=== PATIENT | male | born 1955 | race Caucasian/White ===

== ENCOUNTER → 2016-10-19 | Outpatient (CLI) | payer BC, OTHER ==
[2015-10-30 23:48] VITALS: BP 163/90
[~2016-10-19] MED LIST: GLUC1CAP48 PO; MAGN296S9 PO; MULT-460 PO; NAPR250T2 PO
[2016-10-19 09:39] LABS: BASO % 0 % (0-3); EOS % 2 % (0-3); HEMATOCRIT 48.2 % (39.0-53.0); HEMOGLOBIN 16.3 g/dL (13.0-17.5); LYMPH # 1.6 x10^3/uL (1.0-4.8); LYMPH % 26 % (24-48); MEAN CORPUSCULAR HEMOGLOBIN 31 pg (25-35); MEAN CORPUSCULAR HGB CONC 34 g/dL (31-37); MEAN CORPUSCULAR VOLUME 91 fL (79-100); MONO % 9 % (0-9); NEUT % 64 % (31-73); PLATELET COUNT 169 x10^3/uL (140-400); RED BLOOD COUNT 5.31 x10^6/uL (4.30-5.70); RED CELL DISTRIBUTION WIDTH 14.3 % (11.5-14.5); WHITE BLOOD COUNT 6.3 x10^3/uL (4.0-11.0)
[2016-10-19 09:50] LABS: ALBUMIN 3.8 g/dL (3.4-5.0); CALCIUM 8.7 mg/dL (8.5-10.1); GFR 76.2; POTASSIUM 4.2 mmol/L (3.5-5.1)
[2016-10-19 09:56] LABS: INR 1.1 (0.8-1.1); PROTHROMBIN TIME PATIENT 13.5 SEC (11.7-14.0)
--- NOTE | 2016-10-19 12:59 | EKG ---
[facility] [address] [place] [address] Test Date: 2016-10-19 Test Time: 12:48:13 Pat Name: ALYSSA MERINO Department: Room: Gender: M Electrotype Caster: ERIC : 1955 Requested By: MIKE PETERS Order Number: [id number] Reading MD: Measurements Intervals [place] Rate: 79 P: -8 TN: 150 QRS: 15 QRSD: 86 T: 27 QT: 370 QTc: 425 Interpretive Statements SINUS RHYTHM LEFT ATRIAL ABNORMALITY QRS(T) CONTOUR ABNORMALITY CONSIDER ANTEROLATERAL MYOCARDIAL DAMAGE ABNORMAL ECG RI6.01 Compared to ECG 10/30/2015 22:05:53 Atrial abnormality now present
[2016-10-19 13:02] LABS: BILIRUBIN,URINE NEGATIVE (NEG); GLUCOSE,URINE NEGATIVE (NEG); NITRITE,URINE NEGATIVE (NEG); PH,URINE 5.5; PROTEIN,URINE NEGATIVE (NEG-TRACE); UROBILINOGEN,URINE 0.2 mg/dL (0.2 mg/dL)
[2016-10-19 13:18] LABS: BACTERIA,URINE 0 /HPF (0-FEW); RBC,URINE 0 /HPF (0-2); WBC,URINE 0 /HPF (0-4)
--- NOTE | 2016-10-19 14:46 | RAD ---
Indication preop. Anticipated knee replacement. PA and lateral views were obtained. No prior imaging of the chest is available. The heart and pulmonary vessels appear normal. The lungs are clear. There is no pleural fluid or pneumothorax. The bony structures appear grossly intact. IMPRESSION: No acute or focal process seen in the chest
== END | disposition home or self-care (01) ==
LOC: SURGPAT 13:23
PROVIDERS: ATTEND Orthopaedic Surgery
DX: Z01.818 Encounter for other preprocedural examination (principal); I10 Essential (primary) hypertension
CPT/HCPCS: 36415; 71020; 80048; 81001; 82040; 85027; 85610; 85651; 85730; 87086; 87641; 93005

== ENCOUNTER 2016-11-10 07:10 | Inpatient (IN) | payer BC, OTHER ==
--- NOTE | 2016-11-09 11:18 | PDOC1 ---
History and Physical Date of Admission Date of Admission DATE: 11/10/16 Identification/Chief Complaint Chief Complaint left knee osteoarthritis pain Problems: Source Source: Chart review History of Present Illness History of Present Illness His left knee is worse than his right. He has a history of left knee meniscectomy in 1974. He also states in early his last MRI showed he did not have an ACL. He saw an orthopedic doctor at [facility] in 2000 and stated at that time he needed a left total knee replacement, but he was not ready for that at the time. He has a history of right knee arthroscopy with loose body removal in 1983. He states his pain in his right knee is located medially and the left knee is painful all over. His pain is dull in nature and rates his pain 5/10. His pain is worse with stairs and prolonged weightbearing. His pain is the worst when getting up in the morning. Mowing the lawn is very difficult; he often has to take breaks. He has a daily exercise program he does along with a stationary bike. He has a history of power lifting for 20+ years, but no longer does that. Past Medical History Cardiovascular: HTN Past Surgical History Past Surgical History knee arthroscopy - 1974 & 1983, broken leg - 1969, varicocele - 1988 Family History Family History: Cancer Social History Smoke: No ALCOHOL: none Drugs: None Current Medications Current Medications Active Scripts Active Magnesium Citrate 296 Ml Solution 296 Ml PO ONCE Reported Naproxen 250 Mg Tablet 250 Mg PO Glucosamine & Chondroitin Cap (Gluc 2KCL/Chondr/Laure Hy/Hy Ac) 1 Each Capsule 1 Each PO DAILY Multiple Vitamin (Multivitamin With Minerals) 1 Each Tablet 1 Each PO DAILY Allergies Allergies: Coded Allergies: No Known Drug Allergies (Unverified , 10/28/13) Physical Exam General: Alert, Oriented X3, Cooperative, No acute distress HEENT: Atraumatic, EOMI Lungs: Normal air movement Heart: RRR Abdomen: Soft Extremities: No clubbing, No cyanosis, No edema, Normal pulses, Other (Upon inspection of the left knee, there are no masses or detectable effusion. There is a well-healed surgical scar consistent with open medial meniscectomy. Diffuse enlargement of the knee, consistent with osteoarthritis. Varus alignment. The left knee shows active range of motion from 5-120 degrees. There is crepitus felt with motion and no pain with motion. There is mild tenderness to palpation along the medial joint line. The knee is stable to varus and valgus stress, without subluxation or laxity. Quadriceps and hamstring show normal strength of 5/5, with normal muscle tone. No edema or varicosities. Upon inspection of the right knee, there are no masses or detectable effusion. Diffuse enlargement of the knee, consistent with osteoarthritis. Varus alignment. The right knee shows active range of motion from 0-125 degrees. There is crepitus felt with motion and no pain with motion. There is no tenderness to palpation about the knee. The knee is stable to varus and valgus stress, without subluxation or laxity. Quadriceps and hamstring show normal strength of 5/5, with normal muscle tone. No edema or varicosities. ) Skin: No rashes, No breakdown, No significant lesion Neuro: Normal speech, Sensation intact Psych/Mental Status: Mental status NL, Mood NL Images Images :IMAGING REPORT Images: 45 PA weightbearing view, lateral, and sunrise view of both knees. Clinical information: Bilateral knee pain. Comparison: None. Findings Bones: There is no fracture, dislocation, or acute bony abnormality detected. Joints: Bilateral knees show tricompartmental joint space narrowing with itty-wj-yaiw changes in the medial compartment. There are moderate multiple osteophytes, sclerosis, and deformity of bone contour. These are Kellgren-Walker Grade 4 changes. Soft tissue: Normal. Impression: Bilateral knee osteoarthritis, severe. VTE Prophylaxis Ordered VTE Prophylaxis Devices: Yes VTE Pharmacological Prophylaxi: Yes Assessment/Plan Assessment/Plan Left knee osteoarthritis pain. Findings were reviewed and treatment options were discussed with the patient. He has tried nonoperative treatment for the bilateral knee osteoarthritis and is ready for total knee surgery. The left knee is more symptomatic than the right, so we will start there. We discussed total knee arthroplasty, including the joint class, pre-testing, surgical procedure, and rehabilitation process. We discussed the potential risks of arthroplasty, including risks of bleeding, infection, blood clots, neurovascular injury, need for revision surgery, or other potential surgical or anesthetic complications. Dr. Rivera discussed this with the patient as well and showed him the surgical procedure using knee models and implant models. We will use [employer], because of his age. All of his questions were answered and he desires to proceed with left total knee arthroplasty. We will request medical clearance from his primary care provider, Dr. Patel. I recommended a corticosteroid injection today for the right knee and right shoulder and he agrees. We will scheduled left total knee arthroplasty at a mutually convenient date. VERÓNICA GUERRERO Nov 09, 2016 11:18
[~2016-11-10] VITALS: Ht 174.6 cm; Wt 129.3 kg
[2016-11-10] VITALS (8 sets, daily range): BP systolic 123–171; BP diastolic 71–88
[~2016-11-10 07:10] MED LIST changes: +BACITRACIN 50,000 UNIT in IV NORMAL SALINE 1000ML BAG 1,000 ML IRR ONE; +CELECOXIB 200 MG CAPSULE. PO PRN; +DEXAMETHASONE SOD PHOS 20 MG/5 ML VIAL. ONE; +HYDROcodone/APAP 7.5/325MG 1 TAB TABLET PO PRN; +HYDROmorphone 2 MG/ML VIAL IV PRN; +IV RINGERS,LACTATED 1000ML 1,000 ML IV SCH; +LIDOCAINE 1% 1 ML SYRINGE. ID PRN; +LIDOCAINE 2% PF Vial for OR 5 ML VIAL. ONE; +MIDAZOLAM HCL/PF 2 MG/2 ML VIAL. ONE; +MORPHINE SULFATE 5 MG, KETOROLAC TROMETHAMINE 30 MG, ROPIVacaine 0.5% PF 60 ML, EPINEPH... INT ART ONE; +ONDANSETRON PF 4 MG/2 ML VIAL. IV PRN; +ONDANSETRON PF 4 MG/2 ML VIAL. ONE; +PROCHLORPERAZINE 10 MG/2 ML VIAL. IV PRN; +PROPOFOL 20 ML IV ONE; +SEVOFLURANE > 120 MINUTES. IH ONE; +TOBRAMYCIN POWDER 1.2 GM VIAL. ONE; +TRANEXAMIC ACID 1,000 MG in IV NS 50ML -- 1ST BAG INJ ONE; +VANCOMYCIN 1 GM VIAL. ONE; +[UNRECOGNIZED DRUG - REMARK] INT ART ONE; +fentaNYL PF VIAL 100 MCG/2 ML VIAL IV PRN; +fentaNYL PF VIAL 100 MCG/2 ML VIAL ONE
[2016-11-10] MEDS ORDERED: SUCCINYLCHOLINE 200 MG/10 ML VIAL. ONE (07:34)
[2016-11-10] MEDS ORDERED: fentaNYL PF VIAL 100 MCG/2 ML VIAL ONE (07:48)
[2016-11-10] MEDS ORDERED: VANCOMYCIN 1 GM VIAL. CEMENT ONE (08:00)
[2016-11-10] MEDS ORDERED: TRANEXAMIC ACID 1,000 MG in IV NS 50ML -- 2ND BAG INJ ONE (08:00)
[2016-11-10] MEDS ORDERED: VANCOMYCIN 1 GM VIAL. ONE (08:12)
--- NOTE | 2016-11-10 09:43 | PDOC4 ---
Operative Note Operative Note Date of Procedure: November 10, 2016 Pre-Op Diagnosis: Osteoarthritis left knee Post-Op Diagnosis: Osteoarthritis left knee Procedure: left total knee arthroplasty Surgeon: Mike Rivera MD Tire Fabricator: Rosa Saenz PA-C, Yevgeniy Wheatley PA-C Anesthesia: General EBL: 100 mL Specimens Obtained: left knee bone and soft tissue Complications: none Implant Company: [employer] Drains: Hemovac plus pain catheter Tourniquet time: 60 Minutes Tourniquet Pressure: 350 mm Hg Indications for Procedure: Arthritis pain unrelieved by nonoperative management. Findings: Severe osteoarthritis with bone on bone contact in all three compartments with varus deformity and medial bone erosion Implants used: Size 7 left bicruciate stabilized Journey II BCS Oxinium femoral component, size 6 left Journey nonporous tibial baseplate, size 5-6 constrained 18 mm left Journey II BCS XLPE articular insert, 41 mm oval Lala II resurfacing patellar component Procedure in Detail: The patient was identified in the preoperative holding area, and the correct left lower extremity was marked by me. The patient was taken to the operating room where the patient was anesthetized by the Department of Anesthesia. Preoperative antibiotics were given intravenously. Tranexamic acid 1 g was given intravenously for intraoperative hemostasis. A "time-out" procedure was performed. The patient was positioned supine on the operative table with a tourniquet on the upper left thigh. The left lower limb was thoroughly prepped and draped in sterile fashion. An impervious stockinet and adhesive drape were used such that the skin was entirely covered. An Wade leg castano was used. The operating team wore personal exhaust-ventilated hoods. The tourniquet was inflated to 350 Hg. A midline skin incision was made with a scalpel using the patella and tibial tubercle as landmarks. Electrocautery was used for hemostasis. My speech therapy assistant used rake retractors. A medial parapatellar arthrotomy incision was used with extension into the distal quadriceps tendon. I avoided a narrow skin bridge from his old incision from the 1970s. The patella was retracted laterally and Hohmann retractors were now used by my speech therapy assistant. Excess synovium, the menisci, and the cruciate ligaments were resected sharply. The patella was assessed and excess synovium and osteophytes around the patellar articulation were removed. The patella was measured with a caliper, cut freehand with a saw using caliper measurements, sized, and then drilled for an oval three-pegged patella component. Periarticular injection was used in the suprapatellar pouch and distal quadriceps muscle. Whitesides's line was assessed on the femur. An intra-medullary 5 degree cutting guide was pinned to the femur, and a distal femoral cut was made with an oscillating saw. An additional 2 mm resection was used due to the deep femoral sulcus, and deficient condyle.My speech therapy assistant held Hohmann retractors and an [employer] retractor to protect the medial and lateral collateral ligaments, the patellar tendon, the skin and the other soft tissues. An anterior referencing guide was applied with external rotation of 3 to match Kranthi s line. A 5-in-1 Journey II cutting guide was then applied and pinned to the femur. The posterior, anterior, and all chamfer cuts were made with the oscillating saw. An extramedullary guide was pinned to the tibia and rotational alignment and the planned resection thickness assessed. An external alignment daniela was used to verify the planned cut in the varus-valgus plane and regarding posterior slope referencing the tibial tubercle, the tibial shaft, the ankle joint, and the second metatarsal. The upper tibia was cut made with an oscillating saw. My speech therapy assistant held Hohmann retractors and a posterior cruciate ligament retractor to protect the medial and lateral collateral ligaments, the patellar tendon, the skin, the peroneal nerve and the other soft tissues. The upper tibia was sized with a trial baseplate. The posterior compartment was cleared of osteophytes and loose bodies, and posterior capsule released. Livia-articular injection was used in the posterior compartment. The box cut for a posterior stabilized component was made. A preliminary reduction was performed with a trial femur, trial tibial baseplate and trial polyethylene. Soft-tissue balancing was now performed, and extension and rotation of the alignments was checked using a guide daniela in the tibial trial and a guide pin in the femur. No additional releases were required. The MCL was deficient despite the varus deformity. The medial osteophyte resection needed was extensive, and the MCL appeared chronically insufficient due to his prior surgery. The stability was assessed using different thicknesses of tibial articular surface to find satisfactory stability and good range of motion. The rotation of the tibial component was marked on the upper tibia. Final trial reduction was now performed verifying patella tracking and tibiofemoral stability and alignment. The tibia preparation was completed with a drill, saw, and fin punch at the previously noted rotation. The final implants were verified and opened. Outer gloves were changed by the operating team. The bone cuts were washed thoroughly with the Joe InterPulse device and dried. Two packages of Palacos bone cement were mixed in powdered form with 2 gm of Vancomycin and 1.2 gm tobramycin, then vacuum-mixed with the monomer, and placed into a cement gun. The cut surfaces of the bone were thoroughly dried with Wynn-tip suction and with laparotomy sponges for cement interdigitation. The final components were cemented into place. The knee was kept at full extension while the cement hardened, and excess cement was removed. Tranexamic acid 1 g was redosed intravenously for additional intraoperative hemostasis. A final periarticular injection was used for pain relief. The tourniquet was released, and electrocautery was used for hemostasis. A final check of tjeor-yw-nbryad and stability was made, and the polyethylene implant final size was chosen. The polyethylene implant was secured to the tibial baseplate, and the knee was reduced a final time. Thorough irrigation was used. Hemovac and pain catheter were used.The arthrotomy was closed with interrupted [id number] #1 PDS suture. The arthrotomy incision was then run with #1 STRATAFIX Symmetric PDS Plus Knotless suture. The subcutaneous tissues were closed with #2-0 Vicryl by my speech therapy assistant. The skin was approximated with STRATAFIX Spiral MONOCRYL Plus Knotless suture by my speech therapy assistant. The skin incision was then covered and reinforced with Dermabond Prineo mesh skin closure dressing. A bulky sterile gauze dressing was applied. Needle and sponge counts were correct. MIKE RIVERA MD Nov 10, 2016 09:43
[2016-11-10] MEDS ORDERED: fentaNYL PF VIAL 100 MCG/2 ML VIAL IV PRN ×2 (10:00)
[2016-11-10] MEDS ORDERED: METOCLOPRAMIDE HCL 10 MG/2 ML VIAL. IV PRN (10:00)
[2016-11-10] MEDS ORDERED: traMADol 50 MG TABLET PO PRN ×2 (10:00)
[2016-11-10] MEDS ORDERED: MORPHINE SULFATE 2 MG/ML DISP.SYRIN. IV PRN (10:00)
[2016-11-10] MEDS ORDERED: diphenhydrAMINE 50 MG/ML VIAL IV PRN (10:00)
[2016-11-10] MEDS ORDERED: MORPHINE SULFATE 10 MG/ML VIAL. IV PRN (10:00)
[2016-11-10] MEDS ORDERED: oxyCODONE/APAP 5/325 1 TAB TABLET PO PRN (10:00)
[2016-11-10] MEDS ORDERED: PROCHLORPERAZINE 5 MG TABLET. PO PRN (10:00)
[2016-11-10] MEDS ORDERED: MORPHINE SULFATE 4 MG/ML DISP.SYRIN. IV PRN ×2 (10:00)
[2016-11-10] MEDS ORDERED: ZOLPIDEM 5 MG TABLET. PO PRN (10:00)
[2016-11-10] MEDS ORDERED: DEXTROSE 50% 25 GM / 50ML DISP.SYRIN. IV PRN (10:00)
[2016-11-10] MEDS ORDERED: CALCIUM CARBONATE 500 MG TAB.CHEW PO PRN (10:00)
[2016-11-10] MEDS ORDERED: ACETAMINOPHEN 325 MG TABLET. PO PRN (10:00)
[2016-11-10] MEDS ORDERED: 0.9 % SODIUM CHLORIDE 10 ML DISP.SYRIN. IV PRN (10:00)
[2016-11-10] MEDS ORDERED: HYDROcodone/APAP 10/325 1 TAB TABLET PO PRN (10:00)
[2016-11-10] MEDS ORDERED: PROCHLORPERAZINE 10 MG/2 ML VIAL. IV PRN (10:00)
[2016-11-10] MEDS ORDERED: MORPHINE SULFATE 2 MG/ML DISP.SYRIN. ONE (10:28)
--- NOTE | 2016-11-10 10:29 | RAD ---
Exam performed: 2 views of the left knee. Indication: Postop evaluation Date of Service: 11/10/16. None available Two views left knee findings: There are postsurgical changes of total left knee arthroplasty with prosthesis in satisfactory position. There is expected subcutaneous edema and emphysema. There is a drainage catheter projecting anteroinferior to the patella. Impression: 1. Postsurgical changes of total left knee arthroplasty.
[2016-11-10] MEDS: MORPHINE SULFATE 2 MG/ML DISP.SYRIN. IV PRN ×2 (10:32→10:43)
[2016-11-10] MEDS ORDERED: MAGNESIUM CITRATE 296 ML SOLUTION. PO ONE (12:00)
[2016-11-10] MEDS: IV DEXTROSE 5 %-0.45 % NACL 1,000 ML IV SCH ×2 (14:15→22:00)
[2016-11-10] MEDS: FERROUS SULFATE 325 MG TABLET. PO SCH (18:44)
[2016-11-10] MEDS: HYDROcodone/APAP 7.5/325MG 1 TAB TABLET PO PRN ×2 (18:46→21:41)
[2016-11-10] MEDS: CELECOXIB 200 MG CAPSULE. PO SCH (21:37)
[2016-11-10] MEDS: ASPIRIN ENTERIC COATED 325 MG TABLET.DR. PO SCH (21:37)
[2016-11-11 03:00] VITALS: BP 117/74
--- NOTE | 2016-11-11 03:56 | ACF ---
Admission Forms Criteria PAIN MANAGEMENT GR Clinical Indications for Admission to Inpatient Care (Place 'X' for any and all applicable criteria): Hospital admission is needed for appropriate care of the patient because of 1 or more of the following are present (1)(2)(3)(4)(5): [ ]I. Severe pain requiring acute inpatient management as indicated by 1 or more of the following (2)(5)(10): [ ]a) Continuous or frequent (eg, every 2 to 4 hours) parenteral analgesics required [A] [ ]b) Necessity (ie, alternative approaches not effective) for analgesic regimen that can only be performed or initiated in inpatient setting [X]II. Pain causing debilitation to the point of inability to function or be supported at any other level of care [ ]III. Severe side effects from pain medications as indicated by ANY ONE of the following (12)(13)(14)(15): [ ]a) Uncontrollable seizures [ ]b) Cardiac arrhythmias of immediate concern [ ]c) Dehydration that is severe or persistent [ ]d) Vomiting that is severe or persistent [ ]e) Altered mental status that is severe or persistent [ ]f) Obstipation with inadequate GI function to maintain nutrition The original [employer] content created by [employer] has been revised. The portions of the content which have been revised are identified through the use of italic text or in bold, and [facility] has neither reviewed nor approved the modified material. All other unmodified content is copyright [employer]. Please see references footnoted in the original [employer] edition 2016 Admission Criteria Met?: Yes SOLO SAHU Nov 11, 2016 03:56
[2016-11-11 05:47] LABS: HEMATOCRIT 37.8 % (39.0-53.0); HEMOGLOBIN 12.8 g/dL (13.0-17.5); RED BLOOD COUNT 4.22 x10^6/uL (4.30-5.70); RED CELL DISTRIBUTION WIDTH 13.9 % (11.5-14.5); WHITE BLOOD COUNT 16.4 x10^3/uL (4.0-11.0)
[2016-11-11] MEDS ORDERED: MAGNESIUM HYDROXIDE 2,400 MG/30 ML ORAL.SUSP. PO PRN (06:00)
[2016-11-11 06:16] VITALS: BP 121/76
[2016-11-11] MEDS: FERROUS SULFATE 325 MG TABLET. PO SCH ×2 (08:05→17:29)
[2016-11-11] MEDS: HYDROcodone/APAP 7.5/325MG 1 TAB TABLET PO PRN (08:05)
[2016-11-11] MEDS: SENNOSIDES/DOCUSATE 8.6/50MG TABLET. PO SCH (08:06)
[2016-11-11] MEDS: MULTIVITAMIN with MINERAL TABLET. PO SCH (08:06)
[2016-11-11] MEDS: ASPIRIN ENTERIC COATED 325 MG TABLET.DR. PO SCH ×2 (08:06→21:52)
[2016-11-11] MEDS: CELECOXIB 200 MG CAPSULE. PO SCH ×2 (08:06→21:52)
--- NOTE | 2016-11-11 09:42 | PDOC ---
PROGRESS NOTES Subjective Subjective No complaints. Pain controlled. States he is doing better than expected. Objective Vital Signs Vital Signs Date Time Temp Pulse Resp B/P (MAP) Pulse Ox O2 Delivery O2 Flow Rate FiO2 11/11/16 08:05 Room Air 11/11/16 06:16 98.3 81 20 121/76 (91) 94 98.3 11/10/16 11:17 2.0 Physical Exam Dressing dry. Pain catheter and Hemovac in place. Good dorsiflexion and plantarflexion of the foot with no evidence of neurovascular injury or DVT. Calves are soft and non-tender. Negative Homans. Peripheral pulses and light touch sensation intact. Labs Laboratory Tests Test 11/10/16 16:50 11/11/16 05:15 Glucose (Fingerstick) 148 mg/dL (70-99) White Blood Count 16.4 x10^3/uL (4.0-11.0) Red Blood Count 4.22 x10^6/uL (4.30-5.70) Hemoglobin 12.8 g/dL (13.0-17.5) Hematocrit 37.8 % (39.0-53.0) Mean Corpuscular Volume 90 fL (79-100) Mean Corpuscular Hemoglobin 30 pg (25-35) Mean Corpuscular Hemoglobin Concent 34 g/dL (31-37) Red Cell Distribution Width 13.9 % (11.5-14.5) Platelet Count 153 x10^3/uL (140-400) Laboratory Tests Test 11/10/16 16:50 11/11/16 05:15 Glucose (Fingerstick) 148 mg/dL (70-99) White Blood Count 16.4 x10^3/uL (4.0-11.0) Red Blood Count 4.22 x10^6/uL (4.30-5.70) Hemoglobin 12.8 g/dL (13.0-17.5) Hematocrit 37.8 % (39.0-53.0) Mean Corpuscular Volume 90 fL (79-100) Mean Corpuscular Hemoglobin 30 pg (25-35) Mean Corpuscular Hemoglobin Concent 34 g/dL (31-37) Red Cell Distribution Width 13.9 % (11.5-14.5) Platelet Count 153 x10^3/uL (140-400) Imaging Postoperative x-rays reviewed by me, showing satisfactory total knee replacement , with no apparent complications. Assessment Assessment POD #1 left TKA Problems: Plan Plan of Care Continue POC including DVT prophylaxis and physical therapy. We discussed possible discharge home tomorrow afternoon. VERÓNICA GUERRERO Nov 11, 2016 09:42
[2016-11-11] MEDS: oxyCODONE/APAP 7.5/325 1 TAB TABLET PO PRN ×2 (12:31→21:52)
[2016-11-11] MEDS: CYCLOBENZAPRINE 10 MG TABLET. PO PRN ×2 (12:33→21:52)
[2016-11-11] MEDS ORDERED: BISACODYL 10 MG SUPP.RECT. PR PRN (16:00)
[2016-11-11 18:30] VITALS: BP 125/91
[2016-11-12 06:00] VITALS: BP 124/92
[2016-11-12 06:06] LABS: HEMATOCRIT 36.6 % (39.0-53.0); HEMOGLOBIN 12.2 g/dL (13.0-17.5)
[2016-11-12] MEDS: FERROUS SULFATE 325 MG TABLET. PO SCH ×2 (08:25→17:13)
[2016-11-12] MEDS: MULTIVITAMIN with MINERAL TABLET. PO SCH (08:25)
[2016-11-12] MEDS: CELECOXIB 200 MG CAPSULE. PO SCH ×2 (08:25→21:33)
[2016-11-12] MEDS: SENNOSIDES/DOCUSATE 8.6/50MG TABLET. PO SCH (08:25)
[2016-11-12] MEDS: ASPIRIN ENTERIC COATED 325 MG TABLET.DR. PO SCH ×2 (08:25→21:00)
[2016-11-12] MEDS: HYDROcodone/APAP 7.5/325MG 1 TAB TABLET PO PRN ×2 (08:26→12:06)
--- NOTE | 2016-11-12 13:15 | PDOC ---
PROGRESS NOTES Subjective Subjective Doing well. States he is surprised he hasn't had much pain. Objective Vital Signs Vital Signs Date Time Temp Pulse Resp B/P (MAP) Pulse Ox O2 Delivery O2 Flow Rate FiO2 11/12/16 08:00 Room Air 11/12/16 06:00 98.0 73 20 124/92 (103) 97 98.0 11/10/16 11:17 2.0 Physical Exam Expected swelling. Pain catheter and Hemovac have been removed. Prineo intact and dry. Spotty drainage from drain site. There is an intact blister laterally. Calf soft and nontender with a negative Homans sign. Good dorsiflexion and plantarflexion with no evidence of neurovascular injury. Peripheral pulses and light touch sensation intact. Labs Laboratory Tests Test 11/10/16 16:50 11/11/16 05:15 11/12/16 05:20 Glucose (Fingerstick) 148 mg/dL (70-99) White Blood Count 16.4 x10^3/uL (4.0-11.0) Red Blood Count 4.22 x10^6/uL (4.30-5.70) Hemoglobin 12.8 g/dL (13.0-17.5) 12.2 g/dL (13.0-17.5) Hematocrit 37.8 % (39.0-53.0) 36.6 % (39.0-53.0) Mean Corpuscular Volume 90 fL (79-100) Mean Corpuscular Hemoglobin 30 pg (25-35) Mean Corpuscular Hemoglobin Concent 34 g/dL (31-37) 33 g/dL (31-37) Red Cell Distribution Width 13.9 % (11.5-14.5) Platelet Count 153 x10^3/uL (140-400) Laboratory Tests Test 11/12/16 05:20 Hemoglobin 12.2 g/dL (13.0-17.5) Hematocrit 36.6 % (39.0-53.0) Mean Corpuscular Hemoglobin Concent 33 g/dL (31-37) Assessment Assessment POD #2 TKA Problems: Plan Plan of Care Continue DVT prophylaxis and physical therapy. Planned discharge tomorrow. Office f/u in 10-14 days. VERÓNICA GUERRERO Nov 12, 2016 13:15
--- NOTE | 2016-11-12 17:27 | PATHOLOGY ---
PATHOLOGY REPORT * * * * * * * * FINAL DIAGNOSIS: Segments of bone and soft tissue, left total knee arthroplasty: - Advanced degenerative arthritis. (JPM:barbie; 11/12/2016) REPORT ELECTRONICALLY SIGNED BY: Darrius Ricardo M.D. DATE/TIME: 11/12/2016 17:27 * * * * * * * * GROSS PATHOLOGY: Received in formalin labeled "Eddi Merino, left knee tissue," are multiple segments of bone, including tibial plateau, measuring 10.0 x 10.0 x 6.3 cm in aggregate dimensions admixed with soft tissue; meniscus is present. The specimen shows focal eburnation of the articular surfaces. Painting Machine Operator sections of bone and soft tissue are submitted in cassette A1, following decalcification. (DAC; 11/11/2016) INITIAL CPT CODE(S): A; 22488, 19159 Professional services performed [place] [facility] [place] [address] Technical services performed by [facility] at [address] [place] [address], [facility] [address] [address]. SPECIMEN(S) RECEIVED: A.Left knee tissue CLINICAL HISTORY: Left knee OA PATIENT: EDDI MERINO /AGE: 9 1955 (Age: 60) PATIENT #: [id number] ALT CASE #: SPECIMEN COLLECTION DATE: 11/10/2016 SPECIMEN RECEIVED DATE: 11/10/2016 [facility] - [address] [place] [address] - PHONE: [phone] * * * END OF REPORT * * *
[2016-11-12 18:38] VITALS: BP 134/89
[2016-11-12] MEDS: oxyCODONE/APAP 7.5/325 1 TAB TABLET PO PRN (21:34)
[2016-11-13 06:00] VITALS: BP 135/83
[2016-11-13 06:15] LABS: HEMATOCRIT 37.4 % (39.0-53.0); HEMOGLOBIN 12.3 g/dL (13.0-17.5)
[2016-11-13] MEDS: MULTIVITAMIN with MINERAL TABLET. PO SCH (08:22)
[2016-11-13] MEDS: CELECOXIB 200 MG CAPSULE. PO SCH (08:22)
[2016-11-13] MEDS: FERROUS SULFATE 325 MG TABLET. PO SCH (08:22)
[2016-11-13] MEDS: ASPIRIN ENTERIC COATED 325 MG TABLET.DR. PO SCH (08:23)
[2016-11-13] MEDS: oxyCODONE/APAP 7.5/325 1 TAB TABLET PO PRN (08:23)
[2016-11-13] MEDS: SENNOSIDES/DOCUSATE 8.6/50MG TABLET. PO SCH (08:23)
--- NOTE | 2016-11-13 12:29 | PDOC ---
PROGRESS NOTES Subjective Subjective Doing well. Planning for discharge later today after PT. Objective Vital Signs Vital Signs Date Time Temp Pulse Resp B/P (MAP) Pulse Ox O2 Delivery O2 Flow Rate FiO2 11/13/16 06:00 97.8 79 20 135/83 (100) 96 Room Air 97.8 11/10/16 11:17 2.0 Physical Exam Expected swelling. Prineo dressing intact and dry. The large lateral blister has bursted, no evidence of infection. There are two tiny blisters that remain intact just superior to the lateral blister Calf soft and nontender. Negative Homans. Good AROM ankle. Peripheral pulses and light touch sensation intact. Labs Laboratory Tests Test 11/12/16 05:20 11/13/16 04:30 Hemoglobin 12.2 g/dL (13.0-17.5) 12.3 g/dL (13.0-17.5) Hematocrit 36.6 % (39.0-53.0) 37.4 % (39.0-53.0) Mean Corpuscular Hemoglobin Concent 33 g/dL (31-37) 33 g/dL (31-37) Laboratory Tests Test 11/13/16 04:30 Hemoglobin 12.3 g/dL (13.0-17.5) Hematocrit 37.4 % (39.0-53.0) Mean Corpuscular Hemoglobin Concent 33 g/dL (31-37) Assessment Assessment POD 3 TKA Problems: Plan Plan of Care Discharge later today, to home. Continue DVT prophylaxis and physical therapy. F/U 10-14 days. VERÓNICA GUERRERO Nov 13, 2016 12:29
--- NOTE | 2016-11-13 12:31 | PDOC3 ---
Discharge Summary Visit Information Date of Admission: Nov 10, 2016 Date of Discharge: Nov 13, 2016 Admitting Diagnosis: left knee osteoarthritis pain Brief Hospital Course Allergies Allergies Coded Allergies Type Severity Reaction Last Updated Verified No Known Drug Allergies 10/28/13 No Vital Signs Vital Signs Date Time Temp Pulse Resp B/P (MAP) Pulse Ox O2 Delivery O2 Flow Rate FiO2 11/13/16 06:00 97.8 79 20 135/83 (100) 96 Room Air 97.8 Lab Results Laboratory Tests Test 11/12/16 05:20 11/13/16 04:30 Hemoglobin 12.2 g/dL (13.0-17.5) 12.3 g/dL (13.0-17.5) Hematocrit 36.6 % (39.0-53.0) 37.4 % (39.0-53.0) Mean Corpuscular Hemoglobin Concent 33 g/dL (31-37) 33 g/dL (31-37) Laboratory Tests Test 11/13/16 04:30 Hemoglobin 12.3 g/dL (13.0-17.5) Hematocrit 37.4 % (39.0-53.0) Mean Corpuscular Hemoglobin Concent 33 g/dL (31-37) Brief Hospital Course 60 year old male who presented with knee osteoarthritis, for elective total knee arthroplasty. The patient underwent total knee arthroplasty under general anesthesia the day of admission. Perioperative antibiotics and DVT prophylaxis were used. Postoperatively physical therapy and case management were consulted. The patient progressed and is stable for discharge. Discharge Information Condition at Discharge: Stable Follow Up: Weeks (2) Disposition/Orders: D/C to Home Scheduled Gluc 2KCL/Chondr/Laure Hy/Hy Ac (Glucosamine & Chondroitin Cap), 1 EACH PO DAILY, (Reported) Magnesium Citrate (Magnesium Citrate), 296 ML PO ONCE Multivitamin With Minerals (Multiple Vitamin), 1 EACH PO DAILY, (Reported) Miscellaneous Medications Naproxen (Naproxen), 250 MG PO, (Reported) Patient Instructions Patient Instructions Patient Instructions Continue to WBAT with walker. Keep dressing dry and intact. F/U with [facility] in 10-14 days. Call for appointment. Physical therapy for TKA Continue DVT prophylaxis with ASA 325mg twice daily. VERÓNICA GUERRERO Nov 13, 2016 12:31
[2016-11-13 14:30] VITALS: BP 126/85
== END 2016-11-13 14:56 | disposition home or self-care (01) | DRG 470 ==
LOC: OPSVCIP 08:32 → 4 SOUTHEST 11:03
PROVIDERS: ADMIT Orthopaedic Surgery; ATTEND Orthopaedic Surgery
PROC: 0SRD0J9 Replacement of Left Knee Joint with Synthetic Substitute, Cemented, Open Approach (ICD-10-PCS; principal; 2016-11-10 07:10)
DX: M17.11 Unilateral primary osteoarthritis, right knee (principal); I10 Essential (primary) hypertension; Z80.9 Family history of malignant neoplasm, unspecified
CPT/HCPCS: 36415; 73560; 82962; 85014; 85018; 85027; 86850; 86900; 86901; 88305; 88311; J0171; J0330; J0690; J1100; J1885; J2250; J2270; J2405; J2704; J2795; J3010; J3260; J3370; J3490; J7030; J7120; 97116; 97150; 97530; 97535; C1769; J2001

== ENCOUNTER → 2020-07-09 | Outpatient (CLI) | payer BC, OTHER ==
[~2020-07-09] MED LIST changes: -BACITRACIN 50,000 UNIT in IV NORMAL SALINE 1000ML BAG 1,000 ML IRR ONE; -CELECOXIB 200 MG CAPSULE. PO PRN; -DEXAMETHASONE SOD PHOS 20 MG/5 ML VIAL. ONE; +FERR325T14 PO; -HYDROcodone/APAP 7.5/325MG 1 TAB TABLET PO PRN; -HYDROmorphone 2 MG/ML VIAL IV PRN; -IV RINGERS,LACTATED 1000ML 1,000 ML IV SCH; -LIDOCAINE 1% 1 ML SYRINGE. ID PRN; -LIDOCAINE 2% PF Vial for OR 5 ML VIAL. ONE; +MAGN296S68 PO; -MAGN296S9 PO; -MIDAZOLAM HCL/PF 2 MG/2 ML VIAL. ONE; -MORPHINE SULFATE 5 MG, KETOROLAC TROMETHAMINE 30 MG, ROPIVacaine 0.5% PF 60 ML, EPINEPH... INT ART ONE; +NAPR-514 PO; +NAPR-699 PO; -NAPR250T2 PO; -ONDANSETRON PF 4 MG/2 ML VIAL. IV PRN; -ONDANSETRON PF 4 MG/2 ML VIAL. ONE; -PROCHLORPERAZINE 10 MG/2 ML VIAL. IV PRN; -PROPOFOL 20 ML IV ONE; +PSYL0.5215 PO; -SEVOFLURANE > 120 MINUTES. IH ONE; -TOBRAMYCIN POWDER 1.2 GM VIAL. ONE; -TRANEXAMIC ACID 1,000 MG in IV NS 50ML -- 1ST BAG INJ ONE; -VANCOMYCIN 1 GM VIAL. ONE; -[UNRECOGNIZED DRUG - REMARK] INT ART ONE; -fentaNYL PF VIAL 100 MCG/2 ML VIAL IV PRN; -fentaNYL PF VIAL 100 MCG/2 ML VIAL ONE
[2020-07-09 14:21] LABS: BASO # 0.1 x10^3/uL (0.0-0.2); BASO % 1 % (0-3); EOS # 0.2 x10^3/uL (0.0-0.7); EOS % 3 % (0-3); HEMATOCRIT 46.1 % (39.0-53.0); HEMOGLOBIN 15.5 g/dL (13.0-17.5); LYMPH % 27 % (24-48); MEAN CORPUSCULAR HEMOGLOBIN 31 pg (25-35); MEAN CORPUSCULAR HGB CONC 34 g/dL (31-37); MEAN CORPUSCULAR VOLUME 91 fL (79-100); MONO # 0.5 x10^3/uL (0.0-1.1); MONO % 7 % (0-9); NEUT # 4.7 x10^3/uL (1.8-7.7); NEUT % 63 % (31-73); PLATELET COUNT 167 x10^3/uL (140-400); RED BLOOD COUNT 5.04 x10^6/uL (4.30-5.70); RED CELL DISTRIBUTION WIDTH 13.6 % (11.5-14.5); WHITE BLOOD COUNT 7.4 x10^3/uL (4.0-11.0)
--- NOTE | 2020-07-09 14:28 | EKG ---
[facility] [address] [place] [address] Test Date: 2020-07-09 Test Time: 14:23:05 Pat Name: ALYSSA MERINO Department: Room: Gender: M Reiki Practitioner: BOBBY : 1955 Requested By: MIKE PETERS Order Number: [id number] Reading MD: Erwin Goddard Measurements Intervals [place] Rate: 81 P: 41 TN: 182 QRS: 6 QRSD: 92 T: 13 QT: 364 QTc: 423 Interpretive Statements SINUS RHYTHM RI6.02 Compared to ECG 10/19/2016 12:48:13 No significant changes Electronically Signed On 07-11-2020 11:23:56 CDT by Erwin Goddard
[2020-07-09 14:30] LABS: PROTHROMBIN TIME PATIENT 13.2 SEC (11.7-14.0)
[2020-07-09 14:35] LABS: ALBUMIN 3.6 g/dL (3.4-5.0); CALCIUM 8.1 mg/dL (8.5-10.1); CREATININE 0.8 mg/dL (0.7-1.3); GFR 97.3; POTASSIUM 3.6 mmol/L (3.5-5.1)
[2020-07-10 01:09] LABS: HEMOGLOBIN A1C 5.4 % (4.8-5.6)
--- NOTE | 2020-07-10 04:51 | RAD ---
Two-view chest dated 07/09/2020. Comparison made 10/19/2016. CLINICAL INDICATION: Preop joint replacement. FINDINGS: PA and lateral views of the chest were obtained. Heart and mediastinal contours are stable. Mildly pr ominent perihilar linear markings are similar to prior study. No consolidation or pleural effusion. N o pneumothorax. IMPRESSION: No acute radiographic abnormality. Stable findings compared to 10/19/2016. Electronically signed by: Tyrone Dickens MD (07/10/2020 4:49 AM) GUILLERMO
== END ==
LOC: SURGPAT 13:34
PROVIDERS: ATTEND Orthopaedic Surgery
DX: Z01.818 Encounter for other preprocedural examination (principal); Z20.822 Contact with and (suspected) exposure to COVID-19; M17.11 Unilateral primary osteoarthritis, right knee
CPT/HCPCS: 36415; 71046; 80048; 82040; 82306; 83036; 85025; 85610; 85651; 87641; 93005

== ENCOUNTER → 2020-07-25 | Outpatient (CLI) | payer BC, OTHER | LOC: LAB 09:56 | PROVIDERS: ATTEND Orthopaedic Surgery | DX: Z01.812 Encounter for preprocedural laboratory examination (principal); Z20.822 Contact with and (suspected) exposure to COVID-19 | CPT/HCPCS: U0003; U0005 ==

== ENCOUNTER 2020-07-29 07:49 | Observation (INO) | payer BC, OTHER ==
[2020-07-09 14:16] VITALS: BP 140/81
[2020-07-29] VITALS (8 sets, daily range): BP systolic 108–140; BP diastolic 62–95
[~2020-07-29] VITALS: Ht 172.7 cm; Wt 122.9 kg
[~2020-07-29 07:49] MED LIST changes: +ACETAMINOPHEN 500 MG TABLET PO PRN; +CELECOXIB 100 MG CAPSULE. PO PRN; +HYDROmorphone 2 MG/ML VIAL IVP PRN; +IV RINGERS,LACTATED 1000ML 1,000 ML IV SCH; +MORPHINE SULFATE 2 MG/ML VIAL. IVP PRN; +PROCHLORPERAZINE 10 MG/2 ML VIAL. IVP PRN; +TRANEXAMIC ACID 1,000 MG in IV NS 50ML -- 1ST BAG INJ ONE; +TV=100ml MORPHINE 5 MG, KETOROLAC 30 MG, ROPIVacaine 0.5% PF 60 ML, EPINEPH... INT ART ONE; +fentaNYL PF VIAL 100 MCG/2 ML VIAL IVP PRN
[2020-07-29] MEDS ORDERED: PROPOFOL 10 MG/ML (20ML) VIAL. IV ONE ×2 (07:50→13:54)
[2020-07-29] MEDS ORDERED: LIDOCAINE 2% PF 5 ML VIAL. ONE (07:50)
[2020-07-29] MEDS ORDERED: fentaNYL PF VIAL 250 MCG/5 ML VIAL ONE (07:51)
[2020-07-29] MEDS ORDERED: TRANEXAMIC ACID 1,000 MG in IV NS 50ML -- 2ND BAG INJ ONE (08:00)
[2020-07-29] MEDS ORDERED: CELE200C PO (08:06)
--- NOTE | 2020-07-29 10:43 | PDOC1 ---
History and Physical Date of Admission Date of Admission DATE: 07/29/20 TIME: 10:36 Identification/Chief Complaint Chief Complaint Right knee osteoarthritis pain Source Source: Chart review, Patient History of Present Illness History of Present Illness 64-year-old man with a prior history of knee arthroscopy. He has a left total knee arthroplasty which is doing well. He has right knee osteoarthritis affecting his quality of life.he has come to the conclusion that his knee is more bothersome compared to his shoulder. His pain is impacting his quality of life as well as his ability to participate in desired activities. He tried nonoperative treatment for the right knee osteoarthritis, without sustained relief. He is interested in knee replacement. Past Medical History Cardiovascular: HTN Past Surgical History Past Surgical History L knee replacement Nicole 10/2016 R knee arthroscopy 1983 Broken R leg 1971 L knee arthroscopy 2000 L knee meniscus removal 1974 bilat eye surgery cataracts removal 2013 Family History Family History: Cancer Social History Smoke: No ALCOHOL: none Drugs: None Current Medications Current Medications Current Medications Fentanyl Citrate (Fentanyl 2ml Vial) 25 mcg PRN Q5MIN PRN IVP MILD PAIN 1-3; Start 07/29/20 at 06:00; Stop 07/30/20 at 05:59 Fentanyl Citrate (Fentanyl 2ml Vial) 50 mcg PRN Q5MIN PRN IVP MODERATE PAIN 4- 6; Start 07/29/20 at 06:00; Stop 07/30/20 at 05:59 Morphine Sulfate (Morphine Sulfate) 1 mg PRN Q10MIN PRN IVP SEVERE PAIN 7-10; Start 07/29/20 at 06:00; Stop 07/30/20 at 05:59 Ringer's Solution 1,000 ml @ 30 mls/hr Q24H IV Last administered on 07/29/20at 08:12; Start 07/29/20 at 06:00; Stop 07/29/20 at 17:59 Hydromorphone HCl (Dilaudid) 0.5 mg PRN Q10MIN PRN IVP SEVERE PAIN 7-10, 2nd CHOICE; Start 07/29/20 at 06:00; Stop 07/30/20 at 05:59 Prochlorperazine Edisylate (Compazine) 5 mg PACU PRN PRN IVP NAUSEA, MRX1; Start 07/29/20 at 06:00; Stop 07/30/20 at 05:59 Aspirin (Jerome Aspirin) 325 mg BID PO ; Start 07/29/20 at 21:00 Celecoxib (CeleBREX) 400 mg 1X PREOP PRN PO PRIOR TO PROCEDURE; Start 07/29/20 at 06:00; Stop 07/29/20 at 15:00 Acetaminophen (Tylenol) 1,000 mg 1X PREOP PRN PO PRIOR TO PROCEDURE Last administered on 07/29/20at 08:16; Start 07/29/20 at 06:00; Stop 07/29/20 at 18:00 Cefazolin Sodium/ Dextrose 50 ml @ 100 mls/hr 1X PREOP PRN IV PRIOR TO PROCEDURE; Start 07/29/20 at 06:00; Stop 07/29/20 at 18:00 Morphine Sulfate 5 mg/Ketorolac Tromethamine 30 mg/Ropivacaine 60 ml/Epinephrine HCl 0.5 mg/Sodium Chloride 100 ml @ 100 mls/hr 1X PERIOP ONCE INT ART ; Start 07/29/20 at 06:00; Stop 07/29/20 at 06:59; Status DC Tranexamic Acid 50 ml @ 50 mls/hr 1X PERIOP ONCE INJ ; Start 07/29/20 at 06:00; Stop 07/29/20 at 06:59; Status DC Tranexamic Acid 50 ml @ 50 mls/hr 1X PERIOP ONCE INJ ; Start 07/29/20 at 08:00; Stop 07/29/20 at 09:00; Status DC Propofol (Diprivan) 200 mg STK-MED ONCE IV ; Start 07/29/20 at 07:50; Stop 07/29/20 at 07:51; Status DC Lidocaine HCl (Lidocaine Pf 2% Vial) 5 ml STK-MED ONCE .ROUTE ; Start 07/29/20 at 07:50; Stop 07/29/20 at 07:51; Status DC Fentanyl Citrate (Fentanyl 5ml Vial) 250 mcg STK-MED ONCE .ROUTE ; Start 07/29/20 at 07:51; Stop 07/29/20 at 07:51; Status DC Active Scripts Active Reported Celebrex (Celecoxib) 200 Mg Capsule 1 Cap PO 1X Ferrous Sulfate 325 Mg Tablet 1 Tab PO BID Metamucil (Psyllium Husk) 0.52 Gm Capsule 1 Cap PO DAILY 30 Days Naproxen 500 Mg Tablet 1 Tab PO BID PRN 30 Days Allergies Allergies: Coded Allergies: No Known Drug Allergies (Unverified , 07/29/20) ROS Review of System Classic ROS: Constitutional fevers Denies. CARDIOLOGY: Leg edema none. RESPIRATORY: Shortness of breath denies. GASTROENTEROLOGY: Weight gain denies. MUSCULOSKELETAL: New arthralgias denies. New Myalgias none. Muscle weakness denies. DERMATOLOGY: Rash denies. NEUROLOGY: Paresthesia/numbness denies. ENDOCRINOLOGY: Poor wound healing no. HEMATOLOGY/LYMPH: Abnormal bruising denies. ALLERGY: Anaphylaxis denies. Physical Exam General: Alert HEENT: Atraumatic Lungs: Normal air movement Heart: RRR Abdomen: Soft Extremities: No cyanosis, Normal pulses Skin: No breakdown, No significant lesion Neuro: Normal speech, Sensation intact, Cranial nerves 3-12 NL Vitals Vitals Vital Signs Date Time Temp Pulse Resp B/P (MAP) Pulse Ox O2 Delivery O2 Flow Rate FiO2 07/29/20 08:14 97.8 77 20 140/95 96 Room Air 97.8 Images Images Marked medial compartment narrowing with [id number] contact and subchondral sclerosis. Moderate to severe lateral compartment narrowing. Moderate patellofemoral compartment narrowing. Tricompartmental small marginal osteophytes. Chondrocalcinosis in the medial and lateral compartments. No acute fracture. Trace joint effusion. Left total knee arthroplasty incompletely evaluated. VTE Prophylaxis Ordered VTE Prophylaxis Devices: Yes VTE Pharmacological Prophylaxi: Yes Assessment/Plan Assessment/Plan He has right knee osteoarthritis. We reviewed his previous x-rays together and discussed the natural history of the condition along with risks, benefits, and alternatives to treatment. Given his failure of nonoperative measures with continued severe pain and loss of function, my recommendation is joint replacement. Plan for right total knee arthroplasty. We discussed the potential risks of infection, neurovascular injury, fracture, bleeding, blood clots, malalignment, need for revision surgery, or other potential surgical or anesthetic complications. I recommended the robotic CORI instrumentation and we discussed my reasoning. We also discussed postoperative treatment and expectations including dental antibiotic prophylaxis and residual numbness over the knee. All of his questions were answered and he desires to proceed with total knee replacement. He is here today for elective right total knee arthroplasty with robotic assist. Justifications for Admission Other Justification MIKE PETERS MD July 29, 2020 10:43
[2020-07-29] MEDS ORDERED: VANCOMYCIN 1 GM VIAL. ONE ×2 (11:14→11:15)
[2020-07-29] MEDS ORDERED: TOBRAMYCIN POWDER 1.2 GM VIAL. ONE (11:15)
[2020-07-29] MEDS ORDERED: ONDANSETRON PF 4 MG/2 ML VIAL. ONE (11:42)
[2020-07-29] MEDS ORDERED: DEXAMETHASONE SOD PHOS 4 MG/ML VIAL ONE (11:42)
[2020-07-29] MEDS ORDERED: TRANEXAMIC ACID in NS IVPB 100 ML ONE (11:49)
[2020-07-29] MEDS ORDERED: SEVOFLURANE 61 TO 120 MINUTES. IH ONE (12:26)
[2020-07-29] MEDS ORDERED: HYDROmorphone 2 MG/ML VIAL ONE (12:40)
--- NOTE | 2020-07-29 13:46 | PDOC4 ---
Operative Note Operative Note Date of Procedure: July 29, 2020 Pre-Op Diagnosis: Unilateral primary osteoarthritis, right knee. M17.11 Post-Op Diagnosis: same Procedure: right total knee arthroplasty with patella resurfacing, robotic assisted, CPT 60853 Surgeon: Mike Rivera MD Sueding Machine Operator: GARY Garcia Anesthesia: General EBL: 100 mL Specimens Obtained: right knee bone and soft tissue Complications: none Drains: pain catheter Tourniquet time: 69 Minutes Tourniquet Pressure: 300 mm Hg Indications for Procedure: Knee arthritis pain, affecting quality of life, unrelieved by nonoperative management Findings: Severe osteoarthritis with bone on bone contact medially with full thickness cartilage loss in the patellofemoral and lateral compartments. The medial collateral ligament was degenerative, stiff and inflexible, and contributing to a fixed varus contracture. A medial release was performed from the tibia, however the degenerative ligament was incompetent at the joint line. A constrained polyethylene was used as a result. Implants: Rodriges [employer] Nephew Journey II Total Knee System, Size 7 right bicruciate stabilized Journey II BCS Oxinium femoral component, size 6 right Journey nonporous tibial baseplate, size 5-6 10 mm right Journey II BCS constrained articular insert, 35 mm oval Lala II resurfacing patellar component Procedure in Detail: The patient was identified in the preoperative holding area, and the correct right lower extremity was marked by me. The patient was taken to the operating room where the patient was anesthetized by the Department of Anesthesia. Preoperative antibiotics were given intravenously. Tranexamic acid 1 g was given intravenously for intraoperative hemostasis. A "time-out" procedure was performed. The patient was positioned supine on the operative table with a ac rniquet on the upper right thigh. A right hip bump and heel bump were attached to the operating table for later intraoperative positioning. The right lower limb was thoroughly scrubbed, then sterile Chloraprep solution was applied, and the limb was draped in sterile fashion. The operating team wore exhaust ventilated hoods with [employer] Personal Protection Toga Zippered Peel- Away protection system. An impervious stockinet and an adhesive drape were used such that the skin was entirely covered. The limb was exsanguinated with an Esmarch bandage, and the tourniquet was inflated. A midline skin incision was made with a scalpel using the patella and tibial tubercle as landmarks. Electrocautery was used for hemostasis. My certified registered dental assistant used rake retractors and a laparotomy sponge. A medial parapatellar arthrotomy incision was used with extension into the distal quadriceps tendon. The patella was retracted laterally and Hohmann retractors were now used by my certified registered dental assistant. Excess synovium, the menisci, and the cruciate ligaments were resected sharply. A periarticular multimodal ropivacaine anesthetic injection was used in the suprapatellar pouch and distal quadriceps muscle. The patella was everted and exposed. The patella thickness was measured with a caliper, and then cut freehand with a saw, using caliper measurements to assess the resection. The lateral retinaculum was partially released from the lateral patella using electrocautery. Rongeurs were used to make sure there were no remaining exposed patellar osteophytes medially or laterally. The patella was sized, and then drilled for an oval three-peg patella component. The tibial tracker array for the CORI system was applied to the tibial crest four finger breadths below the tibial tubercle, using percutaneous incisions and bicortical pins. The femoral tracker array was applied outside of the original incision using two separate stab incisions using bicortical pins. Checkpoint verification pins were applied to the femur and tibia. Using the point probe, the medial and lateral malleoli were localized and the locations were stored. The center of the tibia was noted at the anterior cruciate ligament insertion and stored. The center of the femur was marked at the intersection of Whitesidess line with the transepicondylar axis. The hip center calculation was performed with range of motion of the hip. The femur neutral position was identified, and simulated weightbearing was performed with axial compression on the foot. Range of motion without stress was performed and the data collected. Range of motion with valgus stress, and range of motion with varus stress data collection was also performed. Rotational references include the Whitesidess line, and the trans-epicondylar axis. The femoral articular surface was now mapped in 3 dimensions using the point probe and digital data collected. The tibial condyle articular surfaces and cortical edges were mapped in 3 dimensions using the point probe including the medial and lateral tibial plateau. Implant planning was now performed on-screen with manipulation of the implant sizes, cut thicknesses and gaps, component rotation, component flexion/extension and component varus/valgus until satisfactory ligament balance, alignment and stability of the knee was expected throughout the range of motion. A medial release was required, using a 10 blade scalpel, and a Hadley elevator to elevate the medial structures from the upper medial tibia. My certified registered dental assistant held a Hohmann retractor, a medial Z-retractor, and an Army-Mercer retractor to protect the medial and lateral collateral ligaments, the patellar tendon, the skin and the other soft tissues. The point probe was used to confirm the location of the checkpoint verification pins. The distal femoral surface was now prepared using CORI handpiece for bone removal to the previously planned distal femoral resection. The crosshairs at the pin locations were marked by using a mallet and the point probe for definitive location. A 5-in-1 Journey II cutting guide was then applied and the position was checked with the virtual xi wing from the CORI to ensure proper placement as the pins were applied. The posterior, anterior, and all chamfer cuts were made with the oscillating saw. Excess bone was removed with an osteotome and rongeurs. The tibial cutting guide was applied, positioned using the CORI virtual xi wing, and secured to the upper tibia using three pins at the previously planned location. The virtual xi wing was used to confirm the resection depth, slope and coronal alignment. The upper tibia was cut made with an oscillating saw. My certified registered dental assistant held Hohmann retractors and a posterior cruciate ligament retractor to protect the medial and lateral collateral ligaments, the patellar tendon, the skin, the peroneal nerve and the other soft tissues. The upper tibia was sized with a trial baseplate. The posterior compartment was cleared of osteophytes and loose bodies. The periarticular anesthetic injection was used in the posterior compartment. The box cut for a posterior stabilized component was made. A preliminary reduction was performed with a trial femur, trial tibial baseplate and trial polyethylene. The CORI system was used to confirm range of motion, and postoperative stressed gap assessment. The stability was assessed using different thicknesses of tibial articular surface to find satisfactory stability and good range of motion. The rotation of the tibial component was marked on the upper tibia. Final trial reduction was now performed verifying patella tracking and tibiofemoral stability and alignment. The bone pins and tracker arrays were removed, and the checkpoint verification pins were removed. The tibia preparation was completed with a drill, saw, and fin punch at the previously noted rotation. The final implants were verified and opened. Outer gloves were changed by the operating team. Betadine lavage was used. The bone cuts were irrigated with saline using the Joe InterPulse device and then dried with suction and laparotomy sponges. Two packages of Rodriges + Nephew Rally HV bone cement were mixed in powdered form with Vancomycin 1gm and Tobramycin 1.2 gm, and then vacuum-mixed with the monomer, and placed into a cement gun. The cut surfaces of the bone were thoroughly dried with suction and with laparotomy sponges for cement interdigitation. The final components were cemented into place. The knee was kept at full extension while the cement hardened, and excess cement was removed. Tranexamic acid 1 g was redosed intravenously for additional intraoperative hemostasis. The tourniquet was released, and electrocautery was used for hemostasis. A final periarticular anesthetic injection was used for pain relief. The bone pin sites on the tibial crest were closed with #3-0 Nylon sutures. A final check of [id number] and stability was made, and the polyethylene implant final size was chosen. The polyethylene implant was secured to the tibial baseplate, and the knee was reduced a final time and range of motion and stability was confirmed. Thorough irrigation was used. A pain catheter was inserted. Topical Vancomycin 1 gm was used during the closure. The arthrotomy was closed with interrupted [id number] #1 Vicryl suture. The subcutaneous tissues were approximated initially with #2-0 Vicryl inverted interrupted sutures by my certified registered dental assistant. Next the subcuticular layer was approximated in a running fashion with #3-0 STRATAFIX suture by my certified registered dental assistant. The skin incision was then covered and reinforced by my certified registered dental assistant with Acticoat, followed by a ALLAN single use negative pressure wound therapy dressing Soft roll and an Jay wrap were applied. Needle and sponge counts were correct. There were no apparent complications. The patient returned to the recovery room in stable condition. MIKE RIVERA MD July 29, 2020 13:46
[2020-07-29] MEDS ORDERED: METOCLOPRAMIDE HCL 10 MG/2 ML VIAL. IVP PRN (14:00)
[2020-07-29] MEDS ORDERED: ZOLPIDEM 5 MG TABLET. PO PRN (14:00)
[2020-07-29] MEDS ORDERED: PROCHLORPERAZINE 5 MG TABLET. PO PRN (14:00)
[2020-07-29] MEDS ORDERED: 0.9 % SODIUM CHLORIDE 10 ML DISP.SYRIN. IV PRN (14:00)
[2020-07-29] MEDS ORDERED: DEXTROSE 50% 25 GM / 50ML DISP.SYRIN. IV PRN (14:00)
[2020-07-29] MEDS ORDERED: CALCIUM CARBONATE 500 MG TAB.CHEW PO PRN (14:00)
[2020-07-29] MEDS ORDERED: MORPHINE SULFATE 4 MG/ML VIAL. IVP PRN (14:00)
[2020-07-29] MEDS ORDERED: diphenhydrAMINE 50 MG/ML VIAL IVP PRN (14:00)
[2020-07-29] MEDS ORDERED: fentaNYL PF VIAL 100 MCG/2 ML VIAL IVP PRN (14:00)
--- NOTE | 2020-07-29 14:37 | RAD ---
EXAM: Right knee, 2 views. HISTORY: Arthroplasty. COMPARISON: None. FINDINGS: 2 views of the right knee are obtained. There is a right knee arthroplasty in expected posi tion. There is surrounding soft tissue gas and joint fluid due to recent surgery. IMPRESSION: Right knee arthroplasty in expected position. Electronically signed by: Suzanna Brown MD (07/29/2020 2:35 PM) [id number]
[2020-07-29] MEDS ORDERED: fentaNYL PF VIAL 100 MCG/2 ML VIAL ONE (14:39)
[2020-07-29] MEDS: IV NORMAL SALINE 1000ML BAG 1,000 ML IV SCH (15:00)
--- NOTE | 2020-07-29 15:58 | NUR ---
received from recovery. he is alert and oriented x4. he has good motion, sensation and pulses bilateral lower extremities He is rating his pain a "4-5" . He is tolerating liquids without complaints of nausea
[2020-07-29] MEDS: ONDANSETRON PF 4 MG/2 ML VIAL. IVP SCH ×2 (16:06→23:58)
[2020-07-29] MEDS: ONDANSETRON ODT 4 MG TAB.RAPDIS. PO SCH ×2 (16:06→23:58)
[2020-07-29] MEDS: KETOROLAC 30MG VIAL 30 MG, BUPIVACAINE MPF 0.25% 20 ML, EPINEPHrine 0.5 MG in TOTAL VOL... INT ART SCH (18:32)
[2020-07-29] MEDS: oxyCODONE/APAP 5/325 1 TAB TABLET PO PRN (18:32)
[2020-07-29] MEDS: ceFAZolin SODIUM 3 GM in IV DEXTROSE 5% 100ML 100 ML IV SCH (18:33)
[2020-07-29] MEDS: ASPIRIN 325 MG TABLET PO SCH (20:20)
[2020-07-29] MEDS: ASPIRIN ENTERIC COATED 325 MG TABLET.DR. PO SCH (21:00)
[2020-07-30] VITALS (7 sets, daily range): BP systolic 106–126; BP diastolic 65–80
[2020-07-30] MEDS: oxyCODONE/APAP 5/325 1 TAB TABLET PO PRN ×4 (00:06→21:57)
[2020-07-30] MEDS: ceFAZolin SODIUM 3 GM in IV DEXTROSE 5% 100ML 100 ML IV SCH ×2 (00:08→06:10)
[2020-07-30] MEDS: ONDANSETRON ODT 4 MG TAB.RAPDIS. PO SCH ×2 (06:00→12:00)
[2020-07-30] MEDS: ONDANSETRON PF 4 MG/2 ML VIAL. IVP SCH ×2 (06:00→12:00)
[2020-07-30] MEDS ORDERED: MAGNESIUM HYDROXIDE 2,400 MG/30 ML ORAL.SUSP. PO PRN (06:00)
[2020-07-30] MEDS: KETOROLAC 30MG VIAL 30 MG, BUPIVACAINE MPF 0.25% 20 ML, EPINEPHrine 0.5 MG in TOTAL VOL... INT ART SCH (06:10)
[2020-07-30] MEDS: SENNOSIDES/DOCUSATE 8.6/50MG TABLET. PO SCH (08:12)
[2020-07-30] MEDS: ASPIRIN ENTERIC COATED 325 MG TABLET.DR. PO SCH ×2 (08:12→20:34)
[2020-07-30] MEDS: MULTIVITAMIN with MINERAL TABLET. PO SCH (08:12)
[2020-07-30] MEDS: CELECOXIB 100 MG CAPSULE. PO SCH (08:13)
[2020-07-30] MEDS: ASPIRIN 325 MG TABLET PO SCH (08:15)
[2020-07-30] MEDS ORDERED: ONDANSETRON ODT 4 MG TAB.RAPDIS. PO PRN (12:00)
[2020-07-30] MEDS ORDERED: ONDANSETRON PF 4 MG/2 ML VIAL. IVP PRN (12:00)
[2020-07-30] MEDS: IV NORMAL SALINE 1000ML BAG 1,000 ML IV SCH (15:00)
--- NOTE | 2020-07-30 15:57 | NUR ---
SW following. Discussed with RN, pt from home, room air, regular diet. PT/OT recommending home health. SW met with pt, pt would prefer outpatient therapy at [facility]. SW faxed clinicals and script to outpatient therapy. Pt reported he has a walker. Choice of vendor form completed. Awaiting therapy appointment time. RN notified. [place] will continue to follow.
[2020-07-30] MEDS ORDERED: BISACODYL 10 MG SUPP.RECT. PR PRN (16:00)
--- NOTE | 2020-07-30 18:09 | NUR ---
original surgical dressing removed. ALLAN dressing was saturated with sanguineous drainage. He is oozing on the lower half incision; cleansed with chlor prep steri strips applied then 4x4's abd (2) then Medigap applied. no further drainage noted. IAC medications is wearing off.He has an increase in pain. Percocet given and ice applied to knee area. He had a fair day with attendance of 2 rehab sessions.
[2020-07-31] MEDS: oxyCODONE/APAP 5/325 1 TAB TABLET PO PRN ×5 (00:43→16:41)
[2020-07-31 03:00] VITALS: BP 117/72
[2020-07-31 07:00] VITALS: BP 126/78
[2020-07-31] MEDS: CELECOXIB 100 MG CAPSULE. PO SCH (08:24)
[2020-07-31] MEDS: ASPIRIN ENTERIC COATED 325 MG TABLET.DR. PO SCH (08:24)
[2020-07-31] MEDS: MULTIVITAMIN with MINERAL TABLET. PO SCH (08:24)
[2020-07-31] MEDS: SENNOSIDES/DOCUSATE 8.6/50MG TABLET. PO SCH (08:24)
[2020-07-31 08:47] LABS: HEMATOCRIT 38.8 % (39.0-53.0); HEMOGLOBIN 13.1 g/dL (13.0-17.5)
[2020-07-31] MEDS: IV NORMAL SALINE 1000ML BAG 1,000 ML IV SCH (13:44)
--- NOTE | 2020-07-31 13:49 | NUR ---
SW following. Discussed with RN, pt from home, room air, regular diet. Outpatient therapy arranged at [facility] outpatient for Wednesday08/02/20 at 1030, arrival time 10am. RN notified. Pt has a walker at home. RN anticipating possible discharge home today. SW will continue to follow.
--- NOTE | 2020-07-31 17:24 | PDOC ---
Provider Note Date of Service: DATE: 07/31/20 TIME: 17:22 Provider Note I saw this patient yesterday about 1:00 PM. He was not ready to go home. X- rays looked good. He was actually feeling pretty good with the pain catheter at that time but not yet doing well in therapy enough to be safely discharged. Dressing was dry, there were no concerning findings but he was not yet independent in therapy. Apparently I did enter a progress note but I meant to. I reviewed his x-ray report and the images and gave a copy of those to him yesterday. Justifications for Admission Other Justification MIKE PETERS MD July 31, 2020 17:24
--- NOTE | 2020-07-31 17:52 | PDOC ---
PROGRESS NOTES Date of Service DATE: 07/31/20 TIME: 17:50 Subjective Subjective Doing well. Planning for discharge today. Objective Vital Signs Vital Signs Date Time Temp Pulse Resp B/P (MAP) Pulse Ox O2 Delivery O2 Flow Rate FiO2 07/31/20 17:11 95 Room Air 07/31/20 07:00 98.6 72 18 126/78 (94) 98.6 07/30/20 06:26 2.0 Physical Exam ALLAN dressing changed. Incision benign. Spotty bloody drainage on new allan and underlying Steri-Strips. Labs Laboratory Tests Test 07/31/20 07:55 Hemoglobin 13.1 g/dL (13.0-17.5) Hematocrit 38.8 % (39.0-53.0) Mean Corpuscular Hemoglobin Concent 34 g/dL (31-37) Laboratory Tests Test 07/31/20 07:55 Hemoglobin 13.1 g/dL (13.0-17.5) Hematocrit 38.8 % (39.0-53.0) Mean Corpuscular Hemoglobin Concent 34 g/dL (31-37) Assessment Assessment POD #2 after TKA Plan Plan of Mcfp today. Oral pain meds. Aspirin BID for DVT prophylaxis. Follow up with my office next week. Home Health PT. Justicifation of Admission Dx: Justifications for Admission: Justification of Admission Dx: N/A MIKE PETERS MD July 31, 2020 17:51
[2020-07-31 18:00] VITALS: BP 127/82
[2020-07-31] MEDS ORDERED: OXYC-325 PO (18:04)
[2020-07-31] MEDS ORDERED: ASPI325T11 PO (18:04)
--- NOTE | 2020-07-31 18:04 | PDOC3 ---
Discharge Summary Visit Information Date of Admission: July 29, 2020 Date of Discharge: July 31, 2020 Final Diagnosis Osteoarthritis right knee. Aftercare after right total knee arthroplasty. Brief Hospital Course Allergies Allergies Coded Allergies Type Severity Reaction Last Updated Verified No Known Drug Allergies 07/29/20 No Vital Signs Vital Signs Date Time Temp Pulse Resp B/P (MAP) Pulse Ox O2 Delivery O2 Flow Rate FiO2 07/31/20 17:11 95 Room Air 07/31/20 07:00 98.6 72 18 126/78 (94) 98.6 Lab Results Laboratory Tests Test 07/31/20 07:55 Hemoglobin 13.1 g/dL (13.0-17.5) Hematocrit 38.8 % (39.0-53.0) Mean Corpuscular Hemoglobin Concent 34 g/dL (31-37) Laboratory Tests Test 07/31/20 07:55 Hemoglobin 13.1 g/dL (13.0-17.5) Hematocrit 38.8 % (39.0-53.0) Mean Corpuscular Hemoglobin Concent 34 g/dL (31-37) Brief Hospital Course 64 year old who presented with knee osteoarthritis, for elective total knee arthroplasty. The patient underwent total knee arthroplasty under general anesthesia the day of admission. Perioperative antibiotics and DVT prophylaxis were used. Postoperatively physical therapy and case management were consulted. The patient progressed and is stable for discharge. Discharge Information Condition at Discharge: Stable Follow Up: Weeks Disposition/Orders: D/C to Home Scheduled Celecoxib (Celebrex), 1 CAP PO 1X, (Reported) Ferrous Sulfate (Ferrous Sulfate), 1 TAB PO BID, (Reported) Psyllium Husk (Metamucil), 1 CAP PO DAILY, (Reported) Scheduled PRN Naproxen (Naproxen), 1 TAB PO BID PRN for PAIN, (Reported) Patient Instructions Patient Instructions Continue to weight bearing as tolerated with walker. Keep ALLAN dressing intact and dry. Cut off ALLAN "tail" and throw away battery pack on the 7th day after surgery. Tape down ALLAN tail Leave ALLAN dressing intact otherwise. Follow up with Dr. Rivera's office as scheduled 08/06/2020 at 10:15 a.m. Call if you need to reschedule. Continue enteric coated aspirin 325 mg by mouth twice a day for 30 days to prevent blood clots. Justicifation of Admission Dx: Justifications for Admission: Justification of Admission Dx: N/A MIKE RIVERA MD July 31, 2020 18:04
--- NOTE | 2020-07-31 19:03 | NUR ---
Patient left with his around 1900. ALLAN CDI with a small amount of drainage noted and observed by Dr Rivera. Discharge education done by this nurse, therapy, and the doctor prior to discharge. IV discontinued without complications. OPT set up by the funding specialist. Script sent directly to [facility] since their pharmacy of choice closed at 6pm. No concerns noted at discharge.
--- NOTE | 2020-08-01 09:13 | PATHOLOGY ---
[facility] Accession Number: [id number] . 01 Material submitted: . knee - RIGHT KNEE BONE TISSUE. Modifiers: right . 01 Clinical history: . RIGHT TOTAL KNEE, ARTHROPLASTY . 02 Diagnosis: Segments of bone and articular cartilage and synovial tissue, right total knee arthroplasty: - Degenerative arthritis. - Mild papillary chronic synovitis. . (JPM:mml; 07/31/2020) M 07/31/2020 1551 Local . 02 Electronically signed: . Darrius Ricardo MD, Pathologist NPI- [id number] . 01 Gross description: . The specimen is received in formalin, labeled "Eddi Hunter, right knee bone and tissue" received is a 8.7 cm aggregate of multiple irregular to rounded fragments of bone consistent with a knee joint. The articular surfaces are worn, irregular and eroded. On sectioning, ahmadi-white areas of eburnation are noted. Netsuite Consultant, decalcified sections are submitted in one cassette A1.([facility]; 07/29/2020) NICOLAS/NICOLAS 07/31/2020 1551 Local . 02 Pathologist provided ICD-10: M17.11 . 02 CPT . 414345, 142224 Specimen Comment: A courtesy copy of this report has been sent to [phone] Specimen Comment: Report sent to Specimen Comment: A duplicate report has been generated due to demographic updates. Performed at: 01 [facility] [address] [id number] MD Timi Mehta MD Phone: [phone] Performed at: 02 [facility] [address] [place], [place] [id number] MD Darrius Ricardo MD Phone: [phone]
== END 2020-07-31 19:08 | disposition home or self-care (01) ==
LOC: SURG 07:49 → 4 SOUTHEST 13:59
PROVIDERS: ADMIT Orthopaedic Surgery; ATTEND Orthopaedic Surgery
DX: M17.11 Unilateral primary osteoarthritis, right knee (principal); I10 Essential (primary) hypertension
CPT/HCPCS: 27447; 36415; 73560; 85014; 85018; 86850; 86900; 86901; 88305; 88311; 96361; 96365; 96366; 96375; 96376; 97116; 97150; 97162; 97166; 97530; 97535; A4213; A4628; A4930; A6253; A6258; A6450; C1713; C1755; C1776; G0378; G0379; J0171; J0690; J1100; J1170; J1885; J2270; J2405; J2704; J2795; J3010; J3260; J3370; J3490; J7030; J7060